=== PATIENT | male | born 1965 | race Caucasian/White ===

== ENCOUNTER 2020-07-28 13:48 | Inpatient (IN) ==
[2020-07-28] MEDS ORDERED: GLUCAGON 1 MG VIAL IM PRN (16:35)
[2020-07-28] MEDS ORDERED: DEXTROSE 50% 25 GM/50 ML VIAL IV PRN (16:35)
[2020-07-28] MEDS ORDERED: NICOTINE 21 MG/24 HR PATCH TRANSDERM PRN (17:18)
[2020-07-28] MEDS ORDERED: DOCUSATE SODIUM 100 MG CAPSULE PO PRN (17:18)
[2020-07-28] MEDS ORDERED: ZALEPLON 5 MG CAPSULE PO PRN (17:18)
[2020-07-28] MEDS ORDERED: ALUMINUM/MAGNES/SIMETH MAX STR 30 ML UDCUP PO PRN (17:18)
[2020-07-28] MEDS ORDERED: LACTULOSE 20 GM/30 ML UDCUP PO PRN (17:18)
[2020-07-28] MEDS ORDERED: ACETAMINOPHEN 325 MG TABLET PO PRN (17:18)
[2020-07-28] MEDS ORDERED: guaiFENesin/DM ER 600-30 MG TABLET PO PRN (17:18)
[2020-07-28] MEDS ORDERED: BISACODYL 5 MG TABLET PO PRN (17:18)
[2020-07-28] MEDS ORDERED: diphenhydrAMINE CAP 25 MG CAPSULE PO PRN (17:18)
[2020-07-28] MEDS ORDERED: MORPHINE 4 MG/1 ML VIAL IV PRN ×2 (17:18→19:11)
[2020-07-28] MEDS ORDERED: CALCIUM CARBONATE CHEW 500 MG TABLET PO PRN (17:18)
[2020-07-28] MEDS ORDERED: SIMETHICONE CHEW 125 MG TABLET PO PRN (17:18)
[2020-07-28 17:45] LABS: Basophils # 0.1 10*3/uL (0.0-0.2); Basophils % 0.8 % (0.0-0.8); Eosinophils # 0.3 10*3/uL (0.0-0.87); Eosinophils % 2.5 % (0.00-10.9); Hematocrit 45.4 VOL% (42.0-52.0); Hemoglobin 15.1 GM/DL (14.0-18.0); Immature Granulocytes % 0.6 %; Immature Granulocytes Absolute 0.07 #; Lymphocytes # 2.3 10*3/uL (1.4-4.0); Lymphocytes % 18.6 % (21.2-54.2); Mean Corpuscular HGB Conc 33.3 GM/DL (32-36); Mean Corpuscular Volume 91.5 FL (87-102); Neutrophils % 70.5 % (38.7-73.9); Platelet Count 269 T/CUMM (130-400); Red Blood Count 4.96 MC/CUMM (3.8-5.5); Red Cell Distribution Width 13.2 % (9.3-17.3); White Blood Count 12.2 T/CUMM (4-12)
[2020-07-28 18:05] LABS: Albumin 4.1 G/DL (3.4-5.0); Bilirubin,Total 0.6 MG/DL (0.2-1.0); Calcium 11.3 MG/DL (8.5-10.1); Osmolality,Calculated 279.7 MOS/KG (273-304); Total Protein 7.6 G/DL (6.4-8.3)
[2020-07-28] MEDS: ENOXAPARIN 120 MG/0.8 ML SYRINGE SUBCUT SCH (19:33)
[2020-07-28] MEDS: NITROGLYCERIN 2% OINT 1 INCH/GM PACK TOP PRN (19:34)
[2020-07-28] MEDS ORDERED: ENOXAPARIN 40 MG/0.4 ML SYRINGE SUBCUT SCH (21:00)
[2020-07-28] MEDS: INSULIN REGULAR 100 UNIT/ML SUBCUT SCH ×2 (21:21→21:26)
[2020-07-28] MEDS ORDERED: TICAGRELOR 90 MG TABLET PO ONE (21:40)
[2020-07-29 06:17] LABS: Risk Ratio 5.88; Thyroid Stimulating Hormone 1.23 uIU/ml (0.358-3.74); VLDL CHOLESTEROL 80.4 MG/DL
[2020-07-29 07:22] LABS: Basophils # 0.1 10*3/uL (0.0-0.2); Basophils % 0.6 % (0.0-0.8); Eosinophils # 0.5 10*3/uL (0.0-0.87); Eosinophils % 4.2 % (0.00-10.9); Hematocrit 40.2 VOL% (42.0-52.0); Immature Granulocytes % 0.5 %; Immature Granulocytes Absolute 0.06 #; Lymphocytes % 16.1 % (21.2-54.2); Mean Corpuscular HGB Conc 34.8 GM/DL (32-36); Mean Corpuscular Volume 89.5 FL (87-102); Mean Platelet Volume 10.2 FL (9.6-12.0); Monocytes % 8.2 % (1.7-12.7); Neutrophils % 70.4 % (38.7-73.9); Platelet Count 245 T/CUMM (130-400); Red Blood Count 4.49 MC/CUMM (3.8-5.5); Red Cell Distribution Width 13.2 % (9.3-17.3); White Blood Count 12.7 T/CUMM (4-12)
[2020-07-29 07:32] LABS: Albumin 3.4 G/DL (3.4-5.0); Bilirubin,Total 0.4 MG/DL (0.2-1.0); Calcium 10.4 MG/DL (8.5-10.1); Total Protein 6.9 G/DL (6.4-8.3)
[2020-07-29] MEDS: NITROGLYCERIN 2% OINT 1 INCH/GM PACK TOP PRN (08:04)
[2020-07-29] MEDS: ONDANSETRON 4 MG/2 ML VIAL IV PRN ×2 (08:08→15:36)
[2020-07-29] MEDS ORDERED: ASPIRIN CHEW 81 MG TABLET PO ONE (08:11)
[2020-07-29] MEDS: ENOXAPARIN 120 MG/0.8 ML SYRINGE SUBCUT SCH (08:13)
[2020-07-29] MEDS ORDERED: MAGNESIUM SULF RIDER 2 GM in PREMIX 1 EACH IV PRN (08:34)
[2020-07-29] MEDS ORDERED: diphenhydrAMINE CAP 25 MG CAPSULE PO ONE (08:34)
[2020-07-29] MEDS ORDERED: DIAZEPAM 5 MG TABLET PO ONE (08:34)
[2020-07-29] MEDS ORDERED: POTASSIUM CHLORIDE RIDER 10 MEQ in PREMIX 1 EACH IV PRN (08:34)
[2020-07-29] MEDS ORDERED: SODIUM CHLORIDE 0.45% 1,000 ML IV SCH (09:00)
[2020-07-29 09:16] LABS: CKMB % 8.6 %
[2020-07-29 09:18] LABS: Troponin I 30.8 NG/ML (0.00-0.045)
[2020-07-29] MEDS ORDERED: MIDAZOLAM 2 MG/2 ML VIAL ONE (09:53)
[2020-07-29] MEDS ORDERED: fentaNYL 100 MCG/2 ML VIAL ONE (09:53)
[2020-07-29] MEDS ORDERED: HEPARIN/NACL 0.9% 2 UNITS/ML 500 ML IV ONE (09:54)
[2020-07-29] MEDS ORDERED: HEPARIN/NACL 0.9% 2 UNITS/ML 1,000 ML IV ONE (09:58)
[2020-07-29] MEDS ORDERED: TICAGRELOR 90 MG TABLET ONE (10:16)
[2020-07-29 10:28] LABS: INR 1.1; PT Patient Result 11.5 SECS (9.8-11.9)
[2020-07-29] MEDS ORDERED: NITROGLYCERIN DRIP 50 MG/250 ML BOTTLE IV ONE (10:30)
[2020-07-29] MEDS ORDERED: LIDOCAINE 1% 20 ML VIAL ONE (10:37)
[2020-07-29] MEDS ORDERED: SODIUM CHLORIDE 0.9% 1,000 ML IV SCH (11:30)
[2020-07-29] MEDS: INSULIN REGULAR 100 UNIT/ML SUBCUT SCH ×4 (11:40→21:33)
[2020-07-29] MEDS: PANTOPRAZOLE 40 MG TABLET PO SCH (12:25)
[2020-07-29] MEDS ORDERED: ATORVASTATIN 80 MG TABLET PO SCH (21:00)
[2020-07-29] MEDS: COENZYME Q10 100 MG CAPSULE PO SCH (21:32)
[2020-07-29] MEDS: METOPROLOL TARTRATE 25 MG TABLET PO SCH (21:32)
[2020-07-29] MEDS: TICAGRELOR 90 MG TABLET PO SCH (21:33)
[2020-07-30 06:22] LABS: Basophils # 0.1 10*3/uL (0.0-0.2); Basophils % 0.6 % (0.0-0.8); Eosinophils # 0.4 10*3/uL (0.0-0.87); Eosinophils % 3.5 % (0.00-10.9); Hematocrit 41.8 VOL% (42.0-52.0); Hemoglobin 14.3 GM/DL (14.0-18.0); Immature Granulocytes % 0.4 %; Immature Granulocytes Absolute 0.05 #; Lymphocytes # 1.7 10*3/uL (1.4-4.0); Lymphocytes % 14.2 % (21.2-54.2); Mean Corpuscular HGB Conc 34.2 GM/DL (32-36); Mean Corpuscular Volume 90.1 FL (87-102); Mean Platelet Volume 10.1 FL (9.6-12.0); Monocytes % 12.5 % (1.7-12.7); Neutrophils % 68.8 % (38.7-73.9); Platelet Count 227 T/CUMM (130-400); Red Blood Count 4.64 MC/CUMM (3.8-5.5); Red Cell Distribution Width 13.2 % (9.3-17.3); White Blood Count 11.7 T/CUMM (4-12)
[2020-07-30 06:33] LABS: Calcium 10.7 MG/DL (8.5-10.1)
[2020-07-30 06:39] LABS: Albumin 3.5 G/DL (3.4-5.0); Bilirubin,Total 0.8 MG/DL (0.2-1.0); Calcium 10.7 MG/DL (8.5-10.1); Osmolality,Calculated 273.1 MOS/KG (273-304); Total Protein 7.3 G/DL (6.4-8.3)
[2020-07-30 06:44] LABS: Calcium 10.8 MG/DL (8.5-10.1)
[2020-07-30] MEDS ORDERED: ASPIRIN EC 81 MG TABLET PO SCH (09:00)
[2020-07-30] MEDS ORDERED: FENOFIBRATE 48 MG TABLET PO SCH (09:00)
[2020-07-30] MEDS ORDERED: OLMESARTAN 5 MG TABLET PO SCH (09:00)
[2020-07-30] MEDS: COENZYME Q10 100 MG CAPSULE PO SCH (09:32)
[2020-07-30] MEDS: TICAGRELOR 90 MG TABLET PO SCH (09:33)
[2020-07-30] MEDS: METOPROLOL TARTRATE 25 MG TABLET PO SCH (09:33)
[2020-07-30] MEDS: PANTOPRAZOLE 40 MG TABLET PO SCH (09:34)
[2020-07-30] MEDS: INSULIN REGULAR 100 UNIT/ML SUBCUT SCH (10:11)
[2020-07-30 10:24] VITALS: BP 106/69
== END 2020-07-30 12:16 | disposition home or self-care (01) | DRG 247 ==
LOC: N.TELES → SUATTDRO 15:53
PROVIDERS: ADMIT Internal Medicine; ATTEND Internal Medicine
PROC: CLCCHCL (ICD-10-PCS; 2020-07-29 11:45)